=== PATIENT | male | born 1970 | race Hispanic/Latino ===

== ENCOUNTER 2017-11-12 12:18 | Emergency (ER) | payer OTHER ==
[~2017-11-12] VITALS: Ht 177.8 cm; Wt 120.2 kg
[2017-11-12] MEDS ORDERED: HYDROCODONE/APAP 10MG-325MG TAB PO ONE (13:15)
--- NOTE | 2017-11-12 14:21 | Diagnostic Imaging Report ---
SHOULDER LEFT COMPLETE - 3 views HISTORY: Pain. Trauma. COMPARISON: None available. FINDINGS: Bones: No acute displaced fracture. Osseous alignment is within normal limits. Joints: Mild DJD of AC joint. Soft tissues: The soft tissues appear unremarkable. IMPRESSION: Mild DJD of AC joint. Signed by: Dr. Kaylee Botello M.D. on 11/12/2017 2:17 PM
[2017-11-12] MEDS ORDERED: TYLENOL WITH C1 EACH PO (14:35)
== END 2017-11-12 14:50 | disposition home or self-care (01) ==
LOC: ER 12:18
DX: M25.512 Pain in left shoulder (principal); S43.52XA Sprain of left acromioclavicular joint, initial encounter; S43.422A Sprain of left rotator cuff capsule, initial encounter; X50.0XXA Overexertion from strenuous movement or load, initial encounter; Y92.34 Swimming pool (public) as the place of occurrence of the external cause; I10 Essential (primary) hypertension; J45.909 Unspecified asthma, uncomplicated
CPT/HCPCS: 99283